=== PATIENT | female | born 1975 | race Caucasian/White ===

== ENCOUNTER → 2022-03-12 09:58 | Outpatient (CLI) | payer OTHER, SELFPAY ==
--- NOTE | 2022-03-12 10:00 | DI.US.S_ITS ---
PROCEDURE: US PELVIC COMPLETE INDICATIONS: Pelvic pain check IUD placement TECHNIQUE: Real-time transabdominal scanning was performed of the pelvic organs, with image documentation. COMPARISON: [facility], [place], PELVIC COMPLETE, 02/24/2016, 11:24. FINDINGS: Uterus: Uterus is anteverted and normal in size at 9.3 x 3.1 x 4.7 cm. The myometrium is homogeneous without suspicious mass. The endometrium measures 4.3 mm combined thickness. IUD appears within the endometrial canal without evidence for an blood mid or displacement within limits of this transabdominal exam. Ovaries: Likely surgically absent. No suspicious adnexal mass. Other: No pathologic free abdominal or pelvic fluid. IMPRESSION: Unremarkable appearance of the uterus. IUD appears in appropriate position. Ovaries not identified, likely surgically absent. We strive to produce accurate, complete, and clear reports of imaging services. To assist us in improving patient care, this report was composed using standard report templates and voice recognition software. Therefore, it may contain abnormal punctuation, insertions and/or omissions. Occasional wrong-word or sound-alike substitutions may occur. Though we review the report and make efforts to correct it, we do recommend that the report be read carefully in proper context to recognize any text inaccuracies. Dictated by: Choco Valles D.O. on 03/12/2022 at 9:33 Approved by: Choco Valles D.O. on 03/12/2022 at 9:36
== END ==
PROVIDERS: Family Provider Family Medicine; PCP Family Medicine; Referring Provider Obstetrics & Gynecology; Visit Provider Obstetrics & Gynecology
DX: R10.2 Pelvic and perineal pain (principal); Z30.431 Encounter for routine checking of intrauterine contraceptive device
CPT/HCPCS: 76856

== ENCOUNTER → 2025-04-07 07:29 | Outpatient (CLI) | payer BC, SELFPAY ==
--- NOTE | 2025-04-07 07:30 | DI.US.S_ITS ---
PROCEDURE: US ABDOMEN LIMITED INDICATIONS: BRCA2 +, pancreatic screening TECHNIQUE: Real-time focused scanning was performed of the abdomen, with image documentation. COMPARISON: None. FINDINGS: The liver is normal in size and echotexture measuring 16.9 cm. The gallbladder is anechoic with no stones wall thickening or pericholecystic fluid. The common bile duct measures 3.5 mm. The pancreas is unremarkable. IMPRESSION: Unremarkable limited exam of the right upper quadrant. Dictated by: Tracee Vo M.D. on 04/07/2025 at 8:59 Approved by: Tracee Vo M.D. on 04/07/2025 at 9:00
== END ==
LOC: US 07:29
PROVIDERS: PCP Family Medicine; Referring Provider Family Medicine; Visit Provider Family Medicine
DX: Z15.01 Genetic susceptibility to malignant neoplasm of breast (principal); Z15.09 Genetic susceptibility to other malignant neoplasm
CPT/HCPCS: 76705